=== PATIENT | female | born 1935 | race Caucasian/White ===

== ENCOUNTER 2023-02-21 06:13 | Day surgery (SDC) | payer MEDICARE, OTHER ==
[2023-02-21] VITALS (10 sets, daily range): BP systolic 127–153; BP diastolic 52–82; PULSE 48–62; RESP 11–22; TEMP 97.6; O2SAT 96–99
[~2023-02-21] VITALS: Ht 160 cm; Wt 47.0 kg
[~2023-02-21 06:13] MED LIST: ALBU90AE2 PO; LEVO75TA7 PO; famotidine 20mg tablet PO ONE; oxymetazoline 15 ML nasal spray NS ONE; ringers solution, lacted 1,000 ML IV SCH; tranexamic acid inj. 1,000 MG in normal saline IV soln 100ML IV ONE
[2023-02-21] MEDS ORDERED: cocaine 4% topical solution 4ml bottle ONE (06:49)
[2023-02-21] MEDS ORDERED: LIDOcaine 1% W/epiNEPHrine 1:100,000 20ml vial ONE (06:49)
[2023-02-21] MEDS ORDERED: bacitracin 15gm ointment TP ONE (06:49)
[2023-02-21] MEDS ORDERED: oxymetazoline 15 ML nasal spray NS ONE (06:49)
[2023-02-21] MEDS ORDERED: epiNEPHrine 1 mg/ml 30ml MDV ONE (06:49)
[2023-02-21] MEDS ORDERED: tranexamic acid 100mg/ml inj. ONE (06:58)
[2023-02-21] MEDS ORDERED: mupirocin 2% ointment 22GM ONE (07:02)
[2023-02-21] MEDS ORDERED: sevoflurane 250ml liquid IH ONE (08:06)
[2023-02-21] MEDS ORDERED: fentaNYL/PF 50MCG/1 ML 2ML syringe ONE (08:13)
[2023-02-21] MEDS ORDERED: midazolam 1 mg/ML 2ml injection ONE (09:39)
[2023-02-21] MEDS ORDERED: ondansetron/PF 4mg/2ml inj ONE (09:40)
[2023-02-21] MEDS ORDERED: dexamethasone sod phosphate 4mg/ml inj. ONE (09:40)
[2023-02-21] MEDS ORDERED: propofol inj 20 ML IV ONE (09:40)
[2023-02-21] MEDS ORDERED: LIDOcaine 2% (20mg/ml) 5ml vial ONE (09:40)
[2023-02-21] MEDS ORDERED: morphine 2 MG/ML inj. syringe IV PRN (09:50)
[2023-02-21] MEDS ORDERED: ondansetron/PF 4mg/2ml inj IV PRN (09:50)
[2023-02-21] MEDS ORDERED: meperidine/PF 25mg/ml syringe IV PRN ×3 (09:50)
[2023-02-21] MEDS ORDERED: labetalol 20mg/4ml (5mg/ml) syringe IV PRN (09:50)
[2023-02-21] MEDS ORDERED: acetaminophen 1,000mg/100ml IV 100 ML IV PRN (09:50)
[2023-02-21] MEDS ORDERED: morphine 4 MG/ML inj SYRINge IV PRN (09:50)
[2023-02-21] MEDS ORDERED: proCHLORperazine 10 MG/2 ml inj IV PRN (09:50)
[2023-02-21] MEDS ORDERED: ringers solution, lacted 1,000 ML IV SCH (09:50)
[2023-02-21] MEDS ORDERED: hydrALAZINE 20mg/ml inj. IV PRN (09:50)
--- NOTE | 2023-02-21 09:54 | NUR ---
Received from OR via [facility], accompanied by Anesthesiologist and report given by [facility] Anesthesiologist. PATIENT WAKING UP, DENIES PAIN, VSS, 20G PIV TO RIGHT AC-20G, BILATERAL COTTONOID DRESSING C/D/I. Addendum: 02/21/23 at 1000 by Inder Joel RN Amended: Links added.
[2023-02-21] MEDS ORDERED: salt irrigation nasal spray 45 ML SPRAY NS PRN (10:10)
[2023-02-21] MEDS ORDERED: mupirocin 2% nasal ointment 1gm UD NS ONE (10:15)
--- NOTE | 2023-02-21 10:40 | NUR ---
PULLED COTTONOID DRESSING FROM BILATERAL NOSTRIL. NO S/S OF BLEEDING OR DISCOMFORT AT THIS TIME. WILL KEEP MONITORING.
--- NOTE | 2023-02-21 11:04 | NUR ---
ALL DISCHARGE CRITERIA HAS BEEN MET. VSS, PAIN AT A TOLERABLE LEVEL, ABLE TO SAFELY AMBULATE AND TRANSFER SELF. IV TAKEN OUT WITHOUT ANY COMPLICATIONS. ALL DISCHARGE INSTRUCTIONS COVERED WITH PATIENT AND ALL QUESTIONS ANSWERED. PATIENT TAKEN OUT VIA WHEELCHAIR WITH ALL BELONGINGS TO PERSONAL VEHICLE WHERE FAMILY DROVE PATIENT HOME. Addendum: 02/21/23 at 1119 by Inder Joel RN Amended: Links added.
== END 2023-02-21 11:04 | disposition home or self-care (01) ==
LOC: PAS 06:13 → EDBD 08:00 → PAS 11:04
PROVIDERS: ATTEND Otolaryngology
DX: J32.8 Other chronic sinusitis (principal); J33.8 Other polyp of sinus; J44.9 Chronic obstructive pulmonary disease, unspecified; G47.33 Obstructive sleep apnea (adult) (pediatric); E03.9 Hypothyroidism, unspecified; Z87.891 Personal history of nicotine dependence; Z98.890 Other specified postprocedural states; Z88.2 Allergy status to sulfonamides; Z88.1 Allergy status to other antibiotic agents; Z91.041 Radiographic dye allergy status; Z79.899 Other long term (current) drug therapy
CPT/HCPCS: 31259; 31267; 31276; 61782; 82948; 87070; 87075; 87102; 93005; A6402; J0171; J1100; J2250; J2405; J2704; J3010; J3490; J7030; J7050; J7120; Z7506; Z7508; Z7512; A4618; A6449; A7000

== ENCOUNTER 2025-01-26 08:47 | Emergency (ER) | payer MEDICARE, OTHER, MEDICAID ==
[~2025-01-26] VITALS: Ht 160 cm; Wt 43.6 kg
[~2025-01-26 08:47] MED LIST changes: -ALBU90AE2 PO; +ALBU90AE3 PO; -famotidine 20mg tablet PO ONE; -oxymetazoline 15 ML nasal spray NS ONE; -ringers solution, lacted 1,000 ML IV SCH; -tranexamic acid inj. 1,000 MG in normal saline IV soln 100ML IV ONE
[2025-01-26 08:54] VITALS: TEMP 97.6
--- NOTE | 2025-01-26 09:18 | Physician Documentation ---
History of Present Illness ~ Chief Complaint: Hip pain Stated Complaint: L LEG PAIN Time Seen by MD: 08:54 HPI PT PRESENTS W L HIP PAIN X 4 DAYS. States that as she over exerted herself wall helping with installing some new counter. States she has pain with range of motion and with weight-bearing. Denies any injury. Also reports radiating pain from her left buttocks down the leg. Has a history of low back pain as well denies any red flag symptoms including incontinence numbness tingling Day of Onset: Jan 26, 2025 Medication Reconciliation Allergies: Coded Allergies: Sulfa (Sulfonamide Antibiotics) (Verified Allergy, Unknown, rash, 02/20/23) amoxicillin (Verified Allergy, Unknown, rash, 02/20/23) cefaclor (Verified Allergy, Unknown, 02/20/23) doxycycline (Verified Allergy, Unknown, 02/20/23) iodine (Verified Allergy, Unknown, rash, 02/20/23) Scheduled Levothyroxine Sodium (Levothyroxine Sodium), 1 TAB PO DAILY, (Reported) Scheduled PRN Albuterol Sulfate (Proair Digihaler), 2 PUFFS PO Q4H PRN for SOB or wheezing, (Reported) Miscellaneous Medications Albuterol Sulfate/Budesonide (Airsupra 90-80 Mcg Inhaler), (Reported) Review of Systems All Other Systems at this time: Reviewed and Negative ROS As stated above in the HPI, otherwise all systems are reviewed and negative. Physical Exam Vital Signs: Temperature: 97.6, Source: Oral, Heart Rate: 64, Respiratory Rate: 16, BP: 119/61, Pulse Oximetry: 98, Weight: 43.650 Oxygen Flow Rate: 0 Physical Exam General: Alert, no apparent distress. HEENT: PERRL, EOMI, no injection, moist mucous membranes. Extremities: Pain with range of motion pain with weight-bearing. No obvious deformity Neurologic: Oriented x4. Psychiatric: Normal mood and affect. Skin: Normal color, warm and dry. No edema, no ecchymosis. Progress Results/Orders Results/Orders Orders - ALEKSANDR HAYES TESTER SOUND Hip Unilateral 2 Views (01/26/25 09:29) Completed Orders - ALEKSANDR HAYES TESTER SOUND Hip Unilateral 2 Views (01/26/25 09:29) Vital Signs 01/26/25 01/26/25 01/26/25 08:54 09:32 10:15 Temp 97.6 Pulse 64 58 Resp 16 16 B/P (MAP) 119/61 127/59 Pulse Ox 98 98 O2 Flow Rate 0 Departure Disposition: 01 HOME / SELF CARE / HOMELESS Impression: Primary Impression: Hip pain Condition: Stable Discharge Instructions: Hip Pain Referrals: NO PRIMARY CARE PROVIDER (PCP) Signature Scribe Signature: h Attestation: Scribed for Aleksandr Hayes Membership Coordinator by Aleksandr Hood NP . 01/26/25 18:13 ALEKSANDR HAYES NP Jan 26, 2025 09:18
[2025-01-26] MEDS ORDERED: ALBU10.7 (09:36)
--- NOTE | 2025-01-26 09:41 | RADIOLOGY REPORT ---
DI HIP UNILATERAL 2 VIEWS, INDICATION: pain no known trauma TECHNICAL DATA: Frontal and frog lateral views were obtained of the left hip. COMPARISON: None FINDINGS: The left hip is normally located. The left hip joint is normally maintained with no marginal osteophy doris. No left hip fracture is identified. The left sacroiliac joint appears normal. IMPRESSION: No acute fracture radiographs of the left hip.
[2025-01-26 10:15] VITALS: BP 127/59; PULSE 58; RESP 16; O2SAT 98
== END 2025-01-26 10:21 | disposition home or self-care (01) ==
LOC: ER 08:48
DX: M25.552 Pain in left hip (principal); Z88.0 Allergy status to penicillin; Z88.1 Allergy status to other antibiotic agents; Z88.2 Allergy status to sulfonamides; Z88.8 Allergy status to other drugs, medicaments and biological substances
CPT/HCPCS: 73502; 99283